=== PATIENT | female | born 1975 | race African-American/Black ===

== ENCOUNTER 2016-06-29 19:09 | Emergency (ER) | payer MEDICAID ==
[2016-06-29 19:54] VITALS: BP 136/61; PULSE 82; TEMP 98.8; BMI 22.1
--- NOTE | 2016-06-29 21:39 | EDPRACDOC ---
- General Information Chief Complaint: Back Pain Stated Complaint: LOWER BACK PAIN Time Seen by Provider: 06/29/16 21:26 Information Source: Patient Home Medications: Home Medications Carisoprodol [Soma] 350 mg PO TID 10/29/12 Diazepam [Valium] 10 mg PO BID 10/29/12 Medroxyprogesterone Acetate [Depo-Provera] 150 mg IM BID 10/29/12 Mirtazapine [Remeron] 45 mg PO HS 10/29/12 Trazodone HCl [Oleptro ER] 150 mg PO HS 10/29/12 Ciprofloxacin HCl [Cipro] 500 mg PO BID #14 tab 04/13/15 Ibuprofen 800 mg PO TID 04/13/15 Metronidazole [Flagyl] 500 mg PO BID #14 tab 04/13/15 Milnacipran HCl [Savella] 50 mg PO DAILY 04/13/15 Omeprazole Magnesium [Prilosec Otc] 20 mg PO DAILY 04/13/15 Oxycodone HCl/Acetaminophen [Percocet 5-325 mg Tablet] 1 tab PO Q6H PRN #20 tab 04/13/15 Pitavastatin Calcium [Livalo] 4 mg PO DAILY 04/13/15 Promethazine [Phenergan] 25 mg PO Q4-6H PRN #15 tab 04/13/15 Risperidone [Risperdal] 4 mg PO HS 04/13/15 Tramadol HCl [Ultram] 100 mg PO Q6H PRN 04/13/15 Oxycodone Immediate Release [Oxycodone Immediate Release (OxyIR)] 5 - 15 mg PO Q4H PRN #14 tab 09/03/15 Cyclobenzaprine HCl [Flexeril] 10 mg PO TID #21 tab 06/29/16 Prednisone [Deltasone, Orasone] 2 tabs PO DAILY #20 tab 06/29/16 Allergies/Adverse Reactions: Allergies Allergy/AdvReac Type Severity Reaction Status Date / Time No Known Allergies Allergy Verified 06/29/16 21:13 - History of Present Illness Onset: waitstaff captain HPI: PT PRESENTS TODAY WITH AOC LOW BACK PAIN. FOLLOWS DR. PALACIOS. NO NEW SYMPTOMS. Pain Location: Reports: Right, Lumbar Pain Radiates To: Reports: None Pain Caused By: Reports: Spontaneous Relevant History: Reports: Chronic back pain Pain Severity: Reports: Moderate Pain Quality: Reports: Aching Worsened By: Reports: Movement Associated Signs and Symptoms: Reports: None ED Past Medical History - History Reviewed Yes Nurses notes reviewed and agree except as marked - Patient Medical History Cardiac History: Reports: Hypercholesterolemia Musculoskeletal History: Reports: Osteoarthritis Psychological History: Denies: Depression Surgical History: Reports: Other (NECK, KNEE). Denies: Hysterectomy - Social Medical History Smoking Status: Heavy tobacco smoker (5 or more cigarettes/day or daily pipe/ cigar) EDM Review of Systems - Review of Systems ROS Negative Except as Marked: Yes All systems reviewed and were negative except as marked Constitutional: No Symptoms Reported Respiratory: No Symptoms Reported Cardiovascular: No Symptoms Reported Gastrointestinal: No Symptoms Reported Genitourinary: No Symptoms Reported Neurological: No Symptoms Reported Musculoskeletal: Back Integumentary: No Symptoms Reported - Physical Exam Constitutional: Alert (Awake), No apparent distress Oriented to: Time, Person, Place Last recorded Vital Signs: Last Vital Signs Temp 98.8 F 06/29/16 19:51 Pulse 82 06/29/16 19:51 Resp 20 06/29/16 19:51 BP 136/61 06/29/16 19:51 Pulse Ox 99 06/29/16 19:51 Oxygen Pulse Oxygen Saturation 99 O2 Device Room Air Oxygen Flow Rate Fraction of Inspired Oxygen ( FIO2) - HEENT Head: Normal Eye Exam: Normal Neck: Normal, Denies Pain, Midline - Respiratory/Cardiovascular Respiratory: Normal - CTA Cardiovascular: Normal - GI Palpation: Normal Tenderness: Non tender - Musculoskeletal Back: Lumbar TTP, No Palpable Step-off Extremities: Normal - Integumentary Skin: Normal Lymphatics: Normal - Neurologic Cerebellar: Normal Mood Description: Normal Thought: Coherent Perception: Normal ED Back Exam - Neurologic Motor Deficit: None - Musculoskeletal Cervical: Normal Thoracic: Normal Lumbar: Tender Midline: Tender Paraspinous: Tender Pelvis: Normal Decision Time to Discharge: 21:38 - Departure Disposition: Home Condition: Good Final Diagnosis: Acute low back pain Instructions: Acute Low Back Pain (ED) Education/Counseling Given To: Patient Education/Counseling Given Regarding: Diagnosis, Treatment, Follow Up Referrals: Patti Palacios MD [Primary Care Provider] - One Week Prescriptions: New Cyclobenzaprine HCl [Flexeril] 10 mg PO TID #21 tab Prednisone [Deltasone, Orasone] 2 tabs PO DAILY #20 tab No Action Trazodone HCl [Oleptro ER] 150 mg PO HS Medroxyprogesterone Acetate [Depo-Provera] 150 mg IM BID Mirtazapine [Remeron] 45 mg PO HS Diazepam [Valium] 10 mg PO BID Carisoprodol [Soma] 350 mg PO TID Milnacipran HCl [Savella] 50 mg PO DAILY Ibuprofen 800 mg PO TID Tramadol HCl [Ultram] 100 mg PO Q6H PRN PRN Reason: Pain Pitavastatin Calcium [Livalo] 4 mg PO DAILY Risperidone [Risperdal] 4 mg PO HS Omeprazole Magnesium [Prilosec Otc] 20 mg PO DAILY Ciprofloxacin HCl [Cipro] 500 mg PO BID #14 tab Metronidazole [Flagyl] 500 mg PO BID #14 tab Oxycodone HCl/Acetaminophen [Percocet 5-325 mg Tablet] 1 tab PO Q6H PRN #20 tab PRN Reason: Pain Promethazine [Phenergan] 25 mg PO Q4-6H PRN #15 tab PRN Reason: Nausea/Vomiting Oxycodone Immediate Release [Oxycodone Immediate Release (OxyIR)] 5 - 15 mg PO Q4H PRN #14 tab PRN Reason: Pain Additional Instructions: HEATING PADS TO AREAS OF PAIN. FOLLOW UP WITH PCP FOR ADDITIONAL WORK UP.
[2016-06-29] MEDS ORDERED: CYCLOBENZAPRINE 10 MG TAB ONE (21:46)
[2016-06-29] MEDS ORDERED: CYCLOBENZAPRINE 10 MG TAB PO ONE (21:53)
[2016-06-29] MEDS ORDERED: PREDNISONE 20 MG TAB PO ONE (21:53)
== END 2016-06-29 21:45 | disposition home or self-care (01) ==
LOC: ED 19:09 → EDMC 21:45
DX: M54.5 Low back pain (principal)
CPT/HCPCS: 99282; J3490